=== PATIENT | male | born 1995 | race Caucasian/White ===

== ENCOUNTER → 2023-05-08 10:45 | Outpatient (BNV) | payer OTHER, SELFPAY | PROVIDERS: Visit Provider Psychiatry & Neurology Psychiatry | DX: F39 Unspecified mood [affective] disorder (principal); F63.89 Other impulse disorders; F90.1 Attention-deficit hyperactivity disorder, predominantly hyperactive type; F17.200 Nicotine dependence, unspecified, uncomplicated; F12.10 Cannabis abuse, uncomplicated | CPT/HCPCS: 90837; 99213 ==

== ENCOUNTER 2023-05-13 10:00 | Outpatient (RCR) | payer OTHER, SELFPAY ==
[2023-04-30 13:03] VITALS: BP 104/64; PULSE 88; TEMP 36.7
[2023-04-30 13:06] VITALS: BMI 22.0
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
--- NOTE | 2023-05-02 15:07 | HO.PHP ---
Client's case has been opened and reviewed in treatment team.
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
--- NOTE | 2023-05-09 08:30 | HO.PHP ---
Robby contact PHP admin, Candis, and informed her that he will not be in attendance to program today since it is his son's first birthday. Robby reported no safety concerns and will be in attendance to program tomorrow.
--- NOTE | 2023-05-13 18:58 | HO.PHPPROGNO ---
Subjective Subjective Date of Service: 05/13/23 Reason For Visit: depression Interim History: Patient seen for follow-up, anticipating discharge at the end of program today.? Patient remains superficial, minimizes issues. He reports his mood is good. Says it's his last day. Says the program was helpful but doesn't elaborate much. He says things with DCF are still at a standstill. He reports being back home with his partner and child. DCF has not gotten back to him and he felt he was no longer able to wait to hear back from them. His partner is needing support, she will be due to give soon. He still is not interested in psychotropic treatment for mood/irritability/impulsivity. Patient denies he has any issues, despite his clinical presentation, and irritability/impulsivity being strongly implied in some of the interactions he relays. Otherwise patient reports no acute issues or concerns. He reports his mood is good denies any depression or anger or irritbaility. Denies any hopelessness or SI. Denies thoughts of harming self or others at this time. Denies any aggressive ideation or HI. Denies any paranoia or AH or VH. Sleep, appetite, energy stable. Mental Status Exam Mental Status Exam Narrative: Alert, oriented, in no acute distress. Calm, cooperative. Mood stable, affect appropriate. Speech normal. Thought process linear, coherent. Thought content related to stressors, denies any helplessness, hopelessness or SI.? No aggressive ideation or HI. No paranoia or delusional content elicited. No evidence of psychosis. Insight and judgment intact. Diagnostics Vital Signs (24Hr): BMI result Body Mass Index 22.0 Assessment & Plan Assessment & Plan (1) Mood disorder: Status: Acute Code(s): F39 - Unspecified mood [affective] disorder (2) Other disorder of impulse control: Status: Acute Code(s): F63.89 - Other impulse disorders (3) ADHD, predominantly hyperactive-impulsive subtype: Status: Acute Code(s): F90.1 - Attention-deficit hyperactivity disorder, predominantly hyperactive type (4) Nicotine dependence with current use: Status: Acute Code(s): F17.200 - Nicotine dependence, unspecified, uncomplicated (5) Cannabis use disorder, mild, abuse: Status: Acute Code(s): F12.10 - Cannabis abuse, uncomplicated Plan Discharge from [facility] no medications were started - as per patient preference patient encouraged to consider treatment for irritability, mood, impulsivity, ADHD Patient educated on: diagnosis, medication risk/benefits and substance abuse Informed Consent: understands Reason for contiued partial hosp. stay Substantial Risk for: stable for discharge Certification I certify that partial hospital treatment is medically necessary due to the symptoms and problems resulting from the patient's mental illness and the failure to treat the patient at the partial hospital level of care would likely result in the patient requiring inpatient psychiatric care which could not be prevented at a less intensive level of care. Total time managing care of this patient today __30__ minutes. Discharge Plan Discharge Attending provider: Lashae Barrera Medications: No Action No Known Home Meds Stand Alone Forms: Patient Portal Discharge page Patient Education: Mood Disorders (DC) Telehealth Telehealth Location of provider rendering services: other (private office) Location of patient: other ([facility]) Patient Identification confirmed using: Name, : Yes Telehealth method: video Patient verbally consented to treatment: Yes Patient informed of any privacy concerns related to visit: Yes Minutes spent on Phone/Video with Pt.: 30
== END 2023-05-13 23:59 | disposition home or self-care (01) ==
LOC: HO.PHPA 10:00
PROVIDERS: Visit Provider Psychiatry & Neurology Psychiatry
DX: F39 Unspecified mood [affective] disorder (principal); F63.89 Other impulse disorders; F90.1 Attention-deficit hyperactivity disorder, predominantly hyperactive type; F12.10 Cannabis abuse, uncomplicated; F17.200 Nicotine dependence, unspecified, uncomplicated; Z86.59 Personal history of other mental and behavioral disorders
CPT/HCPCS: 90791; 90853